=== PATIENT | male | born 1960 | race Caucasian/White ===

== ENCOUNTER 2016-06-08 23:12 | Emergency (ER) | payer BC ==
[~2016-06-08] VITALS: Ht 134.6 cm; Wt 48.1 kg
[2016-06-08 23:24] VITALS: BP 140/98
[2016-06-09] MEDS ORDERED: SILVER NITRATE APPLICATOR 1 EA BOX ONE (01:01)
[2016-06-09] MEDS ORDERED: LEVETIRACETAM (250 MG) 250 MG TABLET PO ONE (01:07)
[2016-06-09] MEDS ORDERED: CEPHALEXIN MONOHYDRATE 500 MG CAPSULE PO ONE ×2 (01:28→01:30)
== END 2016-06-09 01:37 | disposition home or self-care (01) ==
LOC: ER 23:14
DX: D49.2 Neoplasm of unspecified behavior of bone, soft tissue, and skin (principal); I10 Essential (primary) hypertension
CPT/HCPCS: A4606; Z7610

== ENCOUNTER 2016-12-26 01:59 | Emergency (ER) | payer BC ==
[~2016-12-26] VITALS: Ht 121.9 cm; Wt 48.5 kg
--- NOTE | 2016-12-26 02:00 | NUR ---
To bed 8 a 55 yo male patient bb ra from home for scalp laceration s/p fall in bathroom. -ko. patient also complains of mild back pain s/p fall. patient is aaox4, nad noted. vss. nondiaphoretic. safety and comfort measures rendered. initial wound care done.
[2016-12-26] MEDS ORDERED: LIDOCAINE HCL/PF 1% 30 ML SDV ONE (03:32)
[2016-12-26 06:58] VITALS: BP 134/89
--- NOTE | 2016-12-26 06:58 | NUR ---
pt ok to discharge home per dr bettencourt. Patient discharged to home in stable condition. Written and verbal after care instructions given. Patient verbalizes understanding of instruction.Patient is awake and alert to self, day, and place. i called for pt home.
== END 2016-12-26 07:00 | disposition home or self-care (01) ==
LOC: ER 02:00
DX: S01.01XA Laceration without foreign body of scalp, initial encounter (principal); I10 Essential (primary) hypertension; S09.8XXA Other specified injuries of head, initial encounter; W18.00XA Striking against unspecified object with subsequent fall, initial encounter; Y93.89 Activity, other specified; Y92.89 Other specified places as the place of occurrence of the external cause; Y99.8 Other external cause status
CPT/HCPCS: 12002; 70450; 72125; 99284; A4606; A6402; J3490; Z7610

== ENCOUNTER 2022-10-17 16:52 | Inpatient (IN) | payer BC, MEDICARE, OTHER ==
[~2022-10-17] VITALS: Ht 134.6 cm; Wt 48.8 kg
[2022-10-17] MEDS ORDERED: MORPHINE SULFATE INJ 2 MG/ML DISP.SYRIN IV ONE (18:30)
[2022-10-17] MEDS ORDERED: ONDANSETRON HCL/PF 4 MG/2 ML VIAL IV ONE (18:30)
[2022-10-17] MEDS ORDERED: LAMO150T2 PO (18:34)
[2022-10-17] MEDS ORDERED: HYDR-4303 PO (18:34)
[2022-10-17] MEDS ORDERED: MELA1TAB27 PO (18:34)
[2022-10-17] MEDS ORDERED: MULT-213 PO (18:34)
[2022-10-17] MEDS ORDERED: LEVE750T10 PO (18:34)
[2022-10-17] MEDS ORDERED: ASPI-1169 PO (18:34)
[2022-10-17] MEDS ORDERED: TRAZ-182 PO (18:34)
[2022-10-17] MEDS ORDERED: AMLO5TAB4 PO (18:34)
[2022-10-17] MEDS ORDERED: POLY17PO4 PO (18:34)
[2022-10-17] MEDS ORDERED: BUSP5TAB3 PO (18:34)
[2022-10-17] MEDS ORDERED: FAMO20TA8 PO (18:34)
[2022-10-17] MEDS ORDERED: CLON0.1T PO (18:34)
[2022-10-17] MEDS ORDERED: LISI10TA29 PO (18:34)
[2022-10-17] MEDS ORDERED: ATOR80TA PO (18:34)
[2022-10-17] MEDS ORDERED: METO25TA6 PO (18:34)
[2022-10-17 19:05] LABS: BASOPHILS % (AUTO) 0.6 % (0.0-2.0); EOSINOPHILS # (AUTO) 0.1 K/uL (0.0-0.7); EOSINOPHILS % (AUTO) 1.1 % (0.0-6.0); HEMATOCRIT 36 % (39-51); HEMOGLOBIN 11.9 g/dL (13.5-17.5); LYMPHOCYTES # (AUTO) 1.2 K/uL (0.8-4.8); LYMPHOCYTES % (AUTO) 14.8 % (20.0-44.0); MEAN CORPUSCULAR HEMOGLOBIN 31 PG (26.0-33.0); MEAN CORPUSCULAR HGB CONC 33 g/dl (31.0-36.0); MEAN CORPUSCULAR VOLUME 94 fL (80-96); MONOCYTES # (AUTO) 0.8 K/uL (0.1-1.30); MONOCYTES % (AUTO) 9.6 % (2.0-12.0); NEUTROPHILS # (AUTO) 5.8 K/uL (1.8-8.9); NEUTROPHILS % (AUTO) 73.9 % (43.0-81.0); PLATELET COUNT (AUTO) 292 K/uL (150-450); RED BLOOD CELL COUNT(AUTO) 3.84 MIL/uL (4.5-6.0); RED CELL DISTRIBUTION WIDTH 13.9 % (11.5-15.0); WHITE BLOOD COUNT (AUTO) 7.9 K/uL (4.3-11.0)
[2022-10-17] MEDS ORDERED: MORPHINE SULFATE INJ 2 MG/ML DISP.SYRIN ONE (19:10)
[2022-10-17] MEDS ORDERED: ONDANSETRON HCL/PF 4 MG/2 ML VIAL ONE (19:10)
[2022-10-17 19:15] LABS: CALCIUM, SERUM 9.5 mg/dL (8.5-10.1); CREATININE 0.5 mg/dL (0.6-1.3); POTASSIUM 3.9 mmol/L (3.5-5.1)
[2022-10-17 19:18] LABS: PARTIAL THROMBOPLASTIN TIME 29.1 SEC (24.3-34.3); PROTHROMBIN TIME 10.5 SECS (9.2-11.1)
[2022-10-17] MEDS ORDERED: MORPHINE SULFATE INJ 4 MG/ML DISP.SYRIN ONE (20:28)
[2022-10-17] MEDS ORDERED: MORPHINE SULFATE INJ 10 MG/ML DISP.SYRIN IV ONE (20:30)
[2022-10-17] MEDS ORDERED: ONDANSETRON HCL/PF 4 MG/2 ML VIAL IVP PRN (21:00)
[2022-10-17] MEDS ORDERED: HYDROCODONE/APAP 5/325MG TABLET PO PRN (21:00)
[2022-10-17] MEDS ORDERED: ZOLPIDEM TARTRATE 5 MG TABLET PO PRN (21:00)
[2022-10-17] MEDS ORDERED: MAG HYDROX/AL HYDROX/SIMETH 30 ML UDC PO PRN (21:00)
[2022-10-17] MEDS ORDERED: Z GUARD REMEDY 4 OZ OINT TP PRN (21:00)
[2022-10-17] MEDS ORDERED: MAGNESIUM HYDROXIDE 30 ML UDC PO PRN (21:00)
[2022-10-17] MEDS ORDERED: ACETAMINOPHEN 325 MG TABLET PO PRN (21:00)
[2022-10-18 04:00] VITALS: BP 161/63; TEMP 97.8; O2SAT 98
[2022-10-18] MEDS: MORPHINE SULFATE INJ 2 MG/ML DISP.SYRIN IV PRN ×2 (04:46→18:26)
[2022-10-18 06:12] LABS: BASOPHILS % (AUTO) 0.7 % (0.0-2.0); EOSINOPHILS # (AUTO) 0.2 K/uL (0.0-0.7); EOSINOPHILS % (AUTO) 3.1 % (0.0-6.0); HEMATOCRIT 34 % (39-51); HEMOGLOBIN 11.5 g/dL (13.5-17.5); LYMPHOCYTES # (AUTO) 0.8 K/uL (0.8-4.8); MEAN CORPUSCULAR HEMOGLOBIN 31 PG (26.0-33.0); MEAN CORPUSCULAR HGB CONC 33 g/dl (31.0-36.0); MEAN CORPUSCULAR VOLUME 94 fL (80-96); MONOCYTES # (AUTO) 0.7 K/uL (0.1-1.30); MONOCYTES % (AUTO) 13.6 % (2.0-12.0); NEUTROPHILS # (AUTO) 3.6 K/uL (1.8-8.9); NEUTROPHILS % (AUTO) 67.6 % (43.0-81.0); PLATELET COUNT (AUTO) 251 K/uL (150-450); RED BLOOD CELL COUNT(AUTO) 3.65 MIL/uL (4.5-6.0); RED CELL DISTRIBUTION WIDTH 13.9 % (11.5-15.0); WHITE BLOOD COUNT (AUTO) 5.3 K/uL (4.3-11.0)
[2022-10-18 06:41] LABS: CALCIUM, SERUM 9.3 mg/dL (8.5-10.1); CREATININE 0.5 mg/dL (0.6-1.3); MAGNESIUM 1.9 mg/dL (1.8-2.4); PHOSPHORUS 3.9 mg/dL (2.5-4.9); POTASSIUM 4.2 mmol/L (3.5-5.1)
[2022-10-18] MEDS: PANTOPRAZOLE 40 MG TABLET.DR PO SCH (07:58)
[2022-10-18] MEDS: HYDROCODONE/APAP 10/325MG TABLET PO PRN ×2 (11:30→21:02)
[2022-10-18] MEDS ORDERED: POLYETHYLENE GLYCOL 3350 17 GM POWD.PACK PO PRN (13:30)
[2022-10-18] MEDS: LamoTRIgine 25 MG TABLET PO SCH (17:24)
[2022-10-18] MEDS: busPIRone 5 MG TABLET PO SCH (17:29)
[2022-10-18] MEDS: LEVETIRACETAM (250 MG) 250 MG TABLET PO SCH (17:30)
[2022-10-18] MEDS: METOPROLOL TARTRATE 25 MG TABLET PO SCH (17:31)
[2022-10-18 20:00] VITALS: BP 110/78; TEMP 98.6; O2SAT 94
[2022-10-18] MEDS: TRAZODONE 50 MG TABLET PO SCH (21:25)
[2022-10-18] MEDS: ATORVASTATIN 40 MG TABLET PO SCH (21:25)
[2022-10-19] MEDS: HYDROCODONE/APAP 10/325MG TABLET PO PRN ×2 (06:48→13:40)
[2022-10-19 07:35] LABS: BASOPHILS % (AUTO) 0.4 % (0.0-2.0); EOSINOPHILS # (AUTO) 0.2 K/uL (0.0-0.7); EOSINOPHILS % (AUTO) 2.9 % (0.0-6.0); HEMATOCRIT 37 % (39-51); HEMOGLOBIN 12.2 g/dL (13.5-17.5); LYMPHOCYTES # (AUTO) 0.7 K/uL (0.8-4.8); LYMPHOCYTES % (AUTO) 10.2 % (20.0-44.0); MEAN CORPUSCULAR HEMOGLOBIN 31 PG (26.0-33.0); MEAN CORPUSCULAR HGB CONC 33 g/dl (31.0-36.0); MEAN CORPUSCULAR VOLUME 94 fL (80-96); MONOCYTES # (AUTO) 0.8 K/uL (0.1-1.30); MONOCYTES % (AUTO) 11.3 % (2.0-12.0); NEUTROPHILS # (AUTO) 5.4 K/uL (1.8-8.9); NEUTROPHILS % (AUTO) 75.2 % (43.0-81.0); PLATELET COUNT (AUTO) 259 K/uL (150-450); RED BLOOD CELL COUNT(AUTO) 3.95 MIL/uL (4.5-6.0); RED CELL DISTRIBUTION WIDTH 14.1 % (11.5-15.0); WHITE BLOOD COUNT (AUTO) 7.2 K/uL (4.3-11.0)
[2022-10-19] MEDS: PANTOPRAZOLE 40 MG TABLET.DR PO SCH (07:43)
[2022-10-19 07:59] LABS: CALCIUM, SERUM 9.7 mg/dL (8.5-10.1); CREATININE 0.5 mg/dL (0.6-1.3); PHOSPHORUS 3.8 mg/dL (2.5-4.9); POTASSIUM 4.2 mmol/L (3.5-5.1)
[2022-10-19 08:24] VITALS: BP 132/98; TEMP 97.7; O2SAT 93
[2022-10-19] MEDS: ASPIRIN 81 MG TAB.CHEW PO SCH (09:11)
[2022-10-19] MEDS: LISINOPRIL (10MG) 10 MG TABLET PO SCH (09:11)
[2022-10-19] MEDS: LEVETIRACETAM (250 MG) 250 MG TABLET PO SCH ×2 (09:12→16:51)
[2022-10-19] MEDS: METOPROLOL TARTRATE 25 MG TABLET PO SCH ×2 (09:12→16:52)
[2022-10-19] MEDS: busPIRone 5 MG TABLET PO SCH ×2 (09:12→16:51)
[2022-10-19] MEDS: AMLODIPINE BESYLATE 5 MG TABLET PO SCH (09:12)
[2022-10-19] MEDS: MULTIVIT W/MINERALS 1 TAB TABLET PO SCH (09:12)
[2022-10-19] MEDS: LamoTRIgine 25 MG TABLET PO SCH ×2 (09:12→16:51)
[2022-10-19 16:52] VITALS: BP 118/82; TEMP 99; O2SAT 96
[2022-10-19] MEDS: MORPHINE SULFATE INJ 2 MG/ML DISP.SYRIN IV PRN ×2 (17:04→22:39)
[2022-10-19 20:00] VITALS: BP 110/79; TEMP 97.8; O2SAT 96
[2022-10-19] MEDS: TRAZODONE 50 MG TABLET PO SCH (21:16)
[2022-10-19] MEDS: ATORVASTATIN 40 MG TABLET PO SCH (21:16)
[2022-10-20] MEDS: MORPHINE SULFATE INJ 2 MG/ML DISP.SYRIN IV PRN (04:33)
[2022-10-20] MEDS: PANTOPRAZOLE 40 MG TABLET.DR PO SCH (07:36)
[2022-10-20 08:00] VITALS: BP 137/99; TEMP 97.9; O2SAT 96
[2022-10-20] MEDS: ASPIRIN 81 MG TAB.CHEW PO SCH (09:54)
[2022-10-20] MEDS: LamoTRIgine 25 MG TABLET PO SCH ×2 (09:55→17:03)
[2022-10-20] MEDS: busPIRone 5 MG TABLET PO SCH ×2 (09:55→17:04)
[2022-10-20] MEDS: LISINOPRIL (10MG) 10 MG TABLET PO SCH (09:55)
[2022-10-20] MEDS: MULTIVIT W/MINERALS 1 TAB TABLET PO SCH (09:55)
[2022-10-20] MEDS: METOPROLOL TARTRATE 25 MG TABLET PO SCH ×2 (09:56→17:04)
[2022-10-20] MEDS: AMLODIPINE BESYLATE 5 MG TABLET PO SCH (09:56)
[2022-10-20] MEDS: LEVETIRACETAM (250 MG) 250 MG TABLET PO SCH ×2 (09:56→17:03)
[2022-10-20] MEDS: HYDROCODONE/APAP 10/325MG TABLET PO PRN ×2 (10:05→17:54)
[2022-10-20 16:00] VITALS: BP 111/83; TEMP 97.9; O2SAT 98
[2022-10-20 20:00] VITALS: BP 133/74; TEMP 98.2; O2SAT 98
[2022-10-20] MEDS: TRAZODONE 50 MG TABLET PO SCH ×2 (21:05→21:09)
[2022-10-20] MEDS: ATORVASTATIN 40 MG TABLET PO SCH ×2 (21:06→21:09)
[2022-10-21] MEDS: PANTOPRAZOLE 40 MG TABLET.DR PO SCH (07:42)
[2022-10-21 08:00] VITALS: BP 146/95; TEMP 97.8; O2SAT 97
[2022-10-21 08:40] LABS: BASOPHILS % (AUTO) 0.6 % (0.0-2.0); EOSINOPHILS # (AUTO) 0.2 K/uL (0.0-0.7); HEMATOCRIT 37 % (39-51); HEMOGLOBIN 12.2 g/dL (13.5-17.5); LYMPHOCYTES # (AUTO) 0.9 K/uL (0.8-4.8); LYMPHOCYTES % (AUTO) 18.7 % (20.0-44.0); MEAN CORPUSCULAR HEMOGLOBIN 31 PG (26.0-33.0); MEAN CORPUSCULAR HGB CONC 33 g/dl (31.0-36.0); MEAN CORPUSCULAR VOLUME 94 fL (80-96); MONOCYTES # (AUTO) 0.6 K/uL (0.1-1.30); MONOCYTES % (AUTO) 12.5 % (2.0-12.0); NEUTROPHILS % (AUTO) 64.2 % (43.0-81.0); PLATELET COUNT (AUTO) 303 K/uL (150-450); RED BLOOD CELL COUNT(AUTO) 3.92 MIL/uL (4.5-6.0); WHITE BLOOD COUNT (AUTO) 4.6 K/uL (4.3-11.0)
[2022-10-21 08:52] LABS: INR 0.95 (0.91-1.10); PARTIAL THROMBOPLASTIN TIME 30.8 SEC (24.3-34.3)
[2022-10-21] MEDS: AMLODIPINE BESYLATE 5 MG TABLET PO SCH (09:32)
[2022-10-21] MEDS: METOPROLOL TARTRATE 25 MG TABLET PO SCH ×2 (09:32→17:17)
[2022-10-21] MEDS: busPIRone 5 MG TABLET PO SCH ×2 (09:32→17:16)
[2022-10-21] MEDS: LamoTRIgine 25 MG TABLET PO SCH ×2 (09:32→17:16)
[2022-10-21] MEDS: ASPIRIN 81 MG TAB.CHEW PO SCH (09:33)
[2022-10-21] MEDS: LEVETIRACETAM (250 MG) 250 MG TABLET PO SCH ×2 (09:33→17:16)
[2022-10-21] MEDS: MULTIVIT W/MINERALS 1 TAB TABLET PO SCH (09:33)
[2022-10-21] MEDS: LISINOPRIL (10MG) 10 MG TABLET PO SCH (09:33)
[2022-10-21] MEDS: HYDROCODONE/APAP 10/325MG TABLET PO PRN ×2 (09:42→19:56)
[2022-10-21 10:30] LABS: ALBUMIN 3.3 g/dL (3.4-5.0); BILIRUBIN,TOTAL 0.5 mg/dL (0.2-1.0); CALCIUM, SERUM 9.6 mg/dL (8.5-10.1); CREATININE 0.6 mg/dL (0.6-1.3); POTASSIUM 4.1 mmol/L (3.5-5.1)
[2022-10-21 16:46] VITALS: BP 98/74; TEMP 98.6; O2SAT 99
[2022-10-21 19:00] VITALS: BP 94/65; TEMP 98.2; O2SAT 95
[2022-10-21] MEDS: ATORVASTATIN 40 MG TABLET PO SCH (21:11)
[2022-10-21] MEDS: TRAZODONE 50 MG TABLET PO SCH (21:11)
[2022-10-22 05:50] LABS: BASOPHILS # (AUTO) 0.1 K/uL (0.0-0.2); BASOPHILS % (AUTO) 1.1 % (0.0-2.0); EOSINOPHILS # (AUTO) 0.2 K/uL (0.0-0.7); EOSINOPHILS % (AUTO) 3.9 % (0.0-6.0); HEMATOCRIT 34 % (39-51); HEMOGLOBIN 11.6 g/dL (13.5-17.5); LYMPHOCYTES # (AUTO) 1.2 K/uL (0.8-4.8); LYMPHOCYTES % (AUTO) 26.1 % (20.0-44.0); MEAN CORPUSCULAR HEMOGLOBIN 32 PG (26.0-33.0); MEAN CORPUSCULAR HGB CONC 34 g/dl (31.0-36.0); MEAN CORPUSCULAR VOLUME 94 fL (80-96); MONOCYTES # (AUTO) 0.7 K/uL (0.1-1.30); MONOCYTES % (AUTO) 14.5 % (2.0-12.0); NEUTROPHILS # (AUTO) 2.5 K/uL (1.8-8.9); NEUTROPHILS % (AUTO) 54.4 % (43.0-81.0); PLATELET COUNT (AUTO) 297 K/uL (150-450); RED BLOOD CELL COUNT(AUTO) 3.63 MIL/uL (4.5-6.0); RED CELL DISTRIBUTION WIDTH 14.1 % (11.5-15.0); WHITE BLOOD COUNT (AUTO) 4.6 K/uL (4.3-11.0)
[2022-10-22 06:02] LABS: CALCIUM, SERUM 9.6 mg/dL (8.5-10.1); CREATININE 0.6 mg/dL (0.6-1.3); INR 0.95 (0.91-1.10); PARTIAL THROMBOPLASTIN TIME 29.6 SEC (24.3-34.3); POTASSIUM 4.2 mmol/L (3.5-5.1)
[2022-10-22] MEDS: PANTOPRAZOLE 40 MG TABLET.DR PO SCH (07:30)
[2022-10-22 08:00] VITALS: BP 116/91; TEMP 97.4; O2SAT 94
[2022-10-22] MEDS ORDERED: POLYMYXIN B SULFATE 0 UNITS ONE (08:45)
[2022-10-22] MEDS ORDERED: BUPIVACAINE 0.5 % PF 150 MG/30 ML VIAL ONE (08:45)
[2022-10-22] MEDS ORDERED: VANCOMYCIN 1 GM VIAL ONE (08:45)
[2022-10-22] MEDS: ASPIRIN 81 MG TAB.CHEW PO SCH (08:49)
[2022-10-22] MEDS: LamoTRIgine 25 MG TABLET PO SCH ×2 (08:50→17:00)
[2022-10-22] MEDS: AMLODIPINE BESYLATE 5 MG TABLET PO SCH (08:50)
[2022-10-22] MEDS: LEVETIRACETAM (250 MG) 250 MG TABLET PO SCH ×2 (08:50→17:00)
[2022-10-22] MEDS: METOPROLOL TARTRATE 25 MG TABLET PO SCH ×2 (08:50→17:00)
[2022-10-22] MEDS: busPIRone 5 MG TABLET PO SCH ×2 (08:50→17:00)
[2022-10-22] MEDS: LISINOPRIL (10MG) 10 MG TABLET PO SCH (08:51)
[2022-10-22] MEDS: MULTIVIT W/MINERALS 1 TAB TABLET PO SCH (08:51)
[2022-10-22] MEDS ORDERED: FENTANYL PF 100MCG/2ML AMPUL ONE ×2 (09:03→10:56)
[2022-10-22] MEDS ORDERED: SUCCINYLCHOLINE CHLORIDE 20 MG/ML VIAL ONE (09:03)
[2022-10-22] MEDS ORDERED: ROCURONIUM BROMIDE 50 MG/5 ML ONE (09:04)
[2022-10-22] MEDS ORDERED: HYDROMORPHONE 1 MG/1 ML DISP.SYRIN ONE ×2 (11:11→11:47)
[2022-10-22] MEDS: IV D5/0.45 NACL W/20 MEQ KCL 1L IV SCH ×2 (13:24)
[2022-10-22 16:00] VITALS: BP 110/76; TEMP 98.5; O2SAT 98
[2022-10-22] MEDS: PROSOURCE / PROSTAT (PYXIS) 30 ML UDC PO SCH (17:00)
[2022-10-22 20:00] VITALS: BP 122/96; TEMP 97.5; O2SAT 92
[2022-10-22] MEDS ORDERED: LEVETIRACETAM (250 MG) 250 MG TABLET PO ONE (20:30)
[2022-10-22] MEDS ORDERED: LamoTRIgine 25 MG TABLET PO ONE (20:30)
[2022-10-22] MEDS: ATORVASTATIN 40 MG TABLET PO SCH (21:26)
[2022-10-22] MEDS: TRAZODONE 50 MG TABLET PO SCH (21:26)
[2022-10-22] MEDS: HYDROCODONE/APAP 10/325MG TABLET PO PRN (21:43)
[2022-10-23] VITALS: BP 115/80; TEMP 98.2; O2SAT 98
[2022-10-23] MEDS: IV D5/0.45 NACL W/20 MEQ KCL 1L IV SCH ×4 (01:46→17:05)
[2022-10-23 04:00] VITALS: BP 110/67; TEMP 98.7; O2SAT 96
[2022-10-23] MEDS: PANTOPRAZOLE 40 MG TABLET.DR PO SCH (07:34)
[2022-10-23] MEDS: HYDROCODONE/APAP 5/325MG TABLET PO PRN ×3 (07:38→18:12)
[2022-10-23 08:00] VITALS: BP 158/78; TEMP 97.6; O2SAT 94
[2022-10-23] MEDS: ASPIRIN 81 MG TAB.CHEW PO SCH (09:33)
[2022-10-23] MEDS: METOPROLOL TARTRATE 25 MG TABLET PO SCH ×2 (09:34→17:07)
[2022-10-23] MEDS: busPIRone 5 MG TABLET PO SCH ×2 (09:34→17:07)
[2022-10-23] MEDS: MULTIVIT W/MINERALS 1 TAB TABLET PO SCH (09:35)
[2022-10-23] MEDS: LISINOPRIL (10MG) 10 MG TABLET PO SCH (09:35)
[2022-10-23] MEDS: AMLODIPINE BESYLATE 5 MG TABLET PO SCH (09:35)
[2022-10-23] MEDS: LEVETIRACETAM (250 MG) 250 MG TABLET PO SCH ×2 (09:42→17:07)
[2022-10-23] MEDS: LamoTRIgine 25 MG TABLET PO SCH ×2 (09:46→17:06)
[2022-10-23] MEDS: PROSOURCE / PROSTAT (PYXIS) 30 ML UDC PO SCH ×2 (09:48→17:06)
[2022-10-23 12:00] VITALS: BP 100/74; TEMP 97.7; O2SAT 98
[2022-10-23 16:00] VITALS: BP 100/72; TEMP 98.2; O2SAT 94
[2022-10-23] MEDS: TRAZODONE 50 MG TABLET PO SCH (21:41)
[2022-10-23] MEDS: ATORVASTATIN 40 MG TABLET PO SCH (21:41)
[2022-10-23 22:23] VITALS: BP 115/57; TEMP 97.9; O2SAT 98
[2022-10-24 00:45] VITALS: BP 96/69; TEMP 99.1; O2SAT 95
[2022-10-24 04:00] VITALS: BP 140/90; TEMP 98.2; O2SAT 98
[2022-10-24] MEDS: IV D5/0.45 NACL W/20 MEQ KCL 1L IV SCH ×4 (04:50→17:52)
[2022-10-24] MEDS: HYDROCODONE/APAP 10/325MG TABLET PO PRN ×2 (04:55→11:41)
[2022-10-24 07:07] LABS: BASOPHILS % (AUTO) 0.2 % (0.0-2.0); CALCIUM, SERUM 9.7 mg/dL (8.5-10.1); CREATININE 0.4 mg/dL (0.6-1.3); EOSINOPHILS # (AUTO) 0.1 K/uL (0.0-0.7); EOSINOPHILS % (AUTO) 1.2 % (0.0-6.0); HEMATOCRIT 32 % (39-51); HEMOGLOBIN 10.5 g/dL (13.5-17.5); LYMPHOCYTES # (AUTO) 0.6 K/uL (0.8-4.8); LYMPHOCYTES % (AUTO) 8.8 % (20.0-44.0); MEAN CORPUSCULAR HEMOGLOBIN 31 PG (26.0-33.0); MEAN CORPUSCULAR HGB CONC 33 g/dl (31.0-36.0); MEAN CORPUSCULAR VOLUME 94 fL (80-96); MONOCYTES # (AUTO) 0.6 K/uL (0.1-1.30); MONOCYTES % (AUTO) 7.9 % (2.0-12.0); NEUTROPHILS # (AUTO) 5.9 K/uL (1.8-8.9); NEUTROPHILS % (AUTO) 81.9 % (43.0-81.0); PLATELET COUNT (AUTO) 253 K/uL (150-450); POTASSIUM 4.1 mmol/L (3.5-5.1); RED BLOOD CELL COUNT(AUTO) 3.38 MIL/uL (4.5-6.0); RED CELL DISTRIBUTION WIDTH 14.1 % (11.5-15.0); WHITE BLOOD COUNT (AUTO) 7.2 K/uL (4.3-11.0)
[2022-10-24] MEDS: PANTOPRAZOLE 40 MG TABLET.DR PO SCH (07:41)
[2022-10-24 08:00] VITALS: BP_SYST 114; BP_SYST 122; BP_DIAS 52; BP_DIAS 70; TEMP 98.4; TEMP 98.6; O2SAT 100; O2SAT 91
[2022-10-24] MEDS: LISINOPRIL (10MG) 10 MG TABLET PO SCH (09:00)
[2022-10-24] MEDS: AMLODIPINE BESYLATE 5 MG TABLET PO SCH (09:00)
[2022-10-24] MEDS: METOPROLOL TARTRATE 25 MG TABLET PO SCH ×2 (09:00→17:29)
[2022-10-24] MEDS ORDERED: Prosource PO (09:45)
[2022-10-24] MEDS ORDERED: PANT40TA49 PO (09:45)
[2022-10-24] MEDS: busPIRone 5 MG TABLET PO SCH ×2 (10:40→17:27)
[2022-10-24] MEDS: LEVETIRACETAM (250 MG) 250 MG TABLET PO SCH ×2 (10:40→17:28)
[2022-10-24] MEDS: ASPIRIN 81 MG TAB.CHEW PO SCH (10:40)
[2022-10-24] MEDS: LamoTRIgine 25 MG TABLET PO SCH ×2 (10:41→17:28)
[2022-10-24] MEDS: MULTIVIT W/MINERALS 1 TAB TABLET PO SCH (10:41)
[2022-10-24] MEDS: PROSOURCE / PROSTAT (PYXIS) 30 ML UDC PO SCH ×2 (10:45→17:30)
[2022-10-24] MEDS: MORPHINE SULFATE INJ 2 MG/ML DISP.SYRIN IV PRN ×2 (11:07→15:55)
[2022-10-24 12:00] VITALS: BP 116/58; TEMP 98.6; O2SAT 100
[2022-10-24 16:00] VITALS: BP 124/56; TEMP 97.7; O2SAT 100
[2022-10-24 17:29] VITALS: BP 115/77
== END 2022-10-24 18:30 | DRG 507 ==
LOC: ER 16:54 → MED 20:42 → TELE 10-22 16:53
PROVIDERS: ATTEND Nurse Practitioner Acute Care
PROC: 0RQM0ZZ Repair Left Elbow Joint, Open Approach (ICD-10-PCS; principal; 2022-10-22)
DX: M84.433A Pathological fracture, right radius, initial encounter for fracture (principal); G91.9 Hydrocephalus, unspecified; M24.321 Pathological dislocation of right elbow, not elsewhere classified; I10 Essential (primary) hypertension; D16.01 Benign neoplasm of scapula and long bones of right upper limb; E78.5 Hyperlipidemia, unspecified; G40.909 Epilepsy, unspecified, not intractable, without status epilepticus; Z98.2 Presence of cerebrospinal fluid drainage device; Q77.4 Achondroplasia
CPT/HCPCS: 36415; 71045-TC; 73070-TC; 73080-TC; 80048-TC; 80053-TC; 83735-TC; 84100-TC; 85025-TC; 85610-TC; 85730-TC; 86850-TC; 87081-TC; 97110-TC; 97112-TC; 97530-TC; 97535-TC; A4217; A4223; A4565; G0378; J0330; J1170; J2270; J2405; J2704; J2765; J3010; J3370; J3480; J3490; J7030